=== PATIENT | female | born 1960 | race Caucasian/White ===

== ENCOUNTER 2016-11-13 12:33 | Emergency (ER) | payer MEDICARE ==
--- NOTE | ~2016-11-13 | CR72 ---
[facility] A Service of [facility] & [facility] RADIOLOGY TEXT RESULTS PATIENT: GIOVANNA BERTRAND LOCATION: [facility] : 62 UNIT #: [id number] AGE: [address]: John Hurst DO SEX: F ORDER DR: [id number] [facility] [address] [place], [place] [address] [id number] E MR#: [id number] Acc #: [id number] NAME: GIOVANNA BERTRAND : 1960 SEX: F STUDY DATE/TIME: 11/13/2016 12:44 UNIT: [facility] ROOM: STUDY DESCRIPTION: CR Chest Single View Portable Attending Physician: John Hurst D.O. Ordering Physician: John Hurst D.O. Primary Care Physician: No Primary Care Physician MEDICAL IMAGING REPORT This report is preliminary unless electronic signature is present EXAM Portable chest. INDICATIO 56-year-old female with cough and shortness of breath today. COMPARISON 06/23/2016 FINDINGS There is linear atelectasis in the lung bases. Heart size normal. The visualized osseous structures are unremarkable. IMPRESSION Linear atelectasis in the lung bases. Dictated by... Dung Valerio M.D. THIS IS AN ELECTRONICALLY VERIFIED REPORT Dung Valerio M.D. at 11/13/2016 3:34 PM DEMETRIA/sagar TD: 11/13/2016 15:15 JOB #: [id number] MEDICAL IMAGING REPORT COPY
--- NOTE | ~2016-11-13 | EKG ---
PATIENT: GIOVANNA BERTRAND UNIT #: [id number] Ventricular Rate: 66 BPM Atrial Rate: 66 BPM P-R Interval: 154 ms QRS Duration: 74 ms Q-T Interval: 386 ms QTC Calculation(Bezet): 404 ms P [place]: 58 degrees Calculated R [place]: 69 degrees Calculated T [place]: 57 degrees Diagnosis Line: Normal sinus rhythm Diagnosis Line: Normal ECG Diagnosis Line: Diagnosis Line: Confirmed by FELIPE DELANEY MD ([id number]) on 11/14/2016 Diagnosis Line: 5:41:02 PM INTERPRETING MD: RHETT WATTS
[~2016-11-13 12:33] MED LIST: ALPRAZOLAM PO; ATIVAN0.5 M1 PO; AVALIDE; BACTRIM DS TABL1 TAB PO; CARAFATE1 G PO; COLACE PO; DICYCLOMINE HCL20 MG PO; FLOMAX0.4 M1 PO; HYDROCODON-ACE1 EAC9 PO; LEVAQUIN PO; LEVOXYL50 MC1 PO; LEXAPRO PO; LIBRIUM5 M1 PO; LIPITOR PO; LISINOPRIL PO; LORTAB 2.5/5001 TAB PO; MACROBID 100 M100 MG PO; METOPROLOL TAR100 MG PO; NEURONTIN300 MG PO; NEURONTIN600 MG PO; NEXIUM PO; NORCO 7.5-3251 EACH PO; PERCOCET10 PO; PHENERGAN PO; PHENERGAN PR; PREDNISONE PO; PREVACID; PRILOSEC PO; PRILOSEC40 MG PO; PRO AIR INHALER; PROAIR RESPICL90 MCG; PYRIDIUM PO; SYMBICORT INH; TOPROL XL PO; TRICOR PO; ZESTORETIC 20/11 TAB PO; ZOFRAN ODT4 MG PO; ZOFRANODT PO
[2016-11-13 13:20] LABS: BASOPHIL% 0.6 % (0-2.5); EOSINOPHIL# 0.2 X10e3 (0-0.7); EOSINOPHIL% 2.9 % (0.0-7.0); HEMATOCRIT 41.2 % (35.0-45.0); HEMOGLOBIN 13.3 gm/dL (12.0-16.0); LYMPHOCYTE# 1.1 X10e3 (1.0-3.5); LYMPHOCYTE% 19.2 % (17.0-45.0); MEAN CELL VOLUME 98.3 FL (83-96); MEAN CORPUSCULAR HEMOGLOBIN 31.8 PG (28-34); MEAN CORPUSCULAR HGB CONC 32.3 g/dL (30-36); MEAN PLATELET VOLUME 8.1 FL (6.5-11.5); MONOCYTE# 0.5 X10e3 (0-1.0); MONOCYTE% 9.7 % (3.0-12.0); NEUTROPHIL# 3.7 X10e3 (1.5-7.1); NEUTROPHIL% 67.6 % (40-75); PLATELET COUNT 172 X10e3 (140-420); RED BLOOD COUNT 4.19 X10e (3.90-5.30); RED CELL DISTRIBUTION WIDTH 15.4 % (11.0-15.5); WHITE BLOOD COUNT 5.5 X10e3 (4.0-10.5)
[2016-11-13 13:21] LABS: DIFF IND NO
[2016-11-13 13:37] LABS: POC - CKMB 3.4 ng/mL (0.0-7.9); POC - TROPONIN 0.12 ng/mL (<=0.05)
[2016-11-13 13:46] LABS: ALBUMIN SERUM 3.9 g/dL (3.5-5.0); BILIRUBIN, DIRECT 0.1 mg/dL (0.0-0.2); BILIRUBIN,INDIRECT 0.4 mg/dL (0.0-0.9); BILIRUBIN,TOTAL 0.5 mg/dL (0.2-2.0); BUN/CREATININE RATIO 17.27; CREATININE SERUM 1.1 mg/dL (0.6-1.4); GLOM FILT RATE Estimated 54.8 mL/min (>60); POTASSIUM 4.9 mmol/L (3.5-5.1)
[2016-11-13 13:56] LABS: INR 0.9; PARTIAL THROMBOPLASTIN TIME 26.4 SECONDS (23.5-31.3); PROTHROMBIN TIME (PATIENT) 9.6 SECONDS (9.6-11.5)
[2016-11-13] MEDS ORDERED: CARAFATE1 G PO (15:13)
[2016-11-13] MEDS ORDERED: LEXAPRO20 MG PO (15:14)
[2016-11-13] MEDS ORDERED: COMPAZINE10 M3 PO (15:14)
== END 2016-11-13 20:12 | disposition home or self-care (01) ==
LOC: CED 12:33
PROVIDERS: Emergency Medicine
DX: J44.1 Chronic obstructive pulmonary disease with (acute) exacerbation (principal); F41.9 Anxiety disorder, unspecified; F32.9 Major depressive disorder, single episode, unspecified; K21.9 Gastro-esophageal reflux disease without esophagitis; I12.9 Hypertensive chronic kidney disease with stage 1 through stage 4 chronic kidney disease, or unspecified chronic kidney disease; N18.9 Chronic kidney disease, unspecified; F17.200 Nicotine dependence, unspecified, uncomplicated; Z88.0 Allergy status to penicillin; Z88.1 Allergy status to other antibiotic agents; Z88.5 Allergy status to narcotic agent; Z88.8 Allergy status to other drugs, medicaments and biological substances; Z79.899 Other long term (current) drug therapy
CPT/HCPCS: 36415; 71010; 80048; 80076; 82553; 84484; 85025; 85379; 85610; 85730; 93005; 96361; 96374; 99284; J2930

== ENCOUNTER → 2017-03-18 | Outpatient (CLI) | payer MEDICARE ==
[~2017-03-18] MED LIST changes: +COMPAZINE10 M3 PO; +LEXAPRO20 MG PO
[2017-03-18 11:23] LABS: BASOPHIL% 0.4 % (0-2.5); EOSINOPHIL# 0.2 X10e3 (0-0.7); EOSINOPHIL% 2.7 % (0.0-7.0); HEMATOCRIT 40.7 % (35.0-45.0); HEMOGLOBIN 13.6 gm/dL (12.0-16.0); MEAN CORPUSCULAR HEMOGLOBIN 32.4 PG (28-34); MEAN CORPUSCULAR HGB CONC 33.4 g/dL (30-36); MEAN PLATELET VOLUME 8.2 FL (6.5-11.5); MONOCYTE# 0.6 X10e3 (0-1.0); MONOCYTE% 8.5 % (3.0-12.0); NEUTROPHIL# 5.7 X10e3 (1.5-7.1); NEUTROPHIL% 75.4 % (40-75); PLATELET COUNT 177 X10e3 (140-420); RED CELL DISTRIBUTION WIDTH 14.4 % (11.0-15.5); WHITE BLOOD COUNT 7.6 X10e3 (4.0-10.5)
[2017-03-18 11:29] LABS: DIFF IND NO
[2017-03-18 11:37] LABS: URINE APPEARANCE CLEAR; URINE BILIRUBIN NEG (NEG); URINE BLOOD NEG (NEG); URINE COLOR YELLOW; URINE GLUCOSE NEG (NEG); URINE KETONE NEG (NEG); URINE LEUKOCYTE ESTERASE 1+ (NEG); URINE NITRATE NEG (NEG); URINE PH 5.5 (5-8); URINE PROTEIN NEG (NEG); URINE SPECIFIC GRAVITY 1.017 (1.003-1.035); URINE UROBILINOGEN 0.2 MG/DL (NEG)
[2017-03-18 11:40] LABS: URBCS1 AUWI 0-2 /[HPF] (0-2); URINE BACTERIA AUWI NEG (NEGATIVE); URINE SQUAMOUS EPITHELIAL CELL OCC /[HPF]
[2017-03-18 11:47] LABS: URINE SOURCE CLEAN CATCH
[2017-03-18 12:13] LABS: ALBUMIN SERUM 3.7 g/dL (3.5-5.0); BILIRUBIN,TOTAL 0.4 mg/dL (0.2-2.0); BUN/CREATININE RATIO 19.09; CALCIUM SERUM 8.6 mg/dL (8.4-10.2); CREATININE SERUM 1.1 mg/dL (0.6-1.4); GLOM FILT RATE Estimated 56.5 mL/min (>60); POTASSIUM 4.3 mmol/L (3.5-5.1); PROTEIN TOTAL SERUM 6.5 g/dL (6.0-8.3)
== END | disposition home or self-care (01) ==
LOC: CLAB 10:35
PROVIDERS: Internal Medicine Nephrology
DX: N18.3 Chronic kidney disease, stage 3 (moderate) (principal)
CPT/HCPCS: 36415; 80053; 81003; 85025